=== PATIENT | male | born 1980 ===

== ENCOUNTER 2023-06-04 15:17 | Inpatient (IN) | payer OTHER ==
[~2023-06-04] VITALS: Ht 172.7 cm; Wt 91.2 kg
[2023-06-04] MEDS ORDERED: ZOLPIDEM 5 MG TABLET PO PRN (19:00)
[2023-06-04] MEDS ORDERED: IBUPROFEN 600 MG TABLET PO PRN (19:00)
[2023-06-04] MEDS ORDERED: ACETAMINOPHEN ES 500 MG TABLET PO PRN (19:00)
[2023-06-04] MEDS ORDERED: LORAZEPAM 1 MG TABLET PO PRN (19:00)
[2023-06-04] MEDS ORDERED: MAG HYDROX/AL HYDROX/SIMETH 30 ML LIQUID UDC PO PRN (19:00)
[2023-06-04] MEDS ORDERED: MAGNESIUM HYDROXIDE 30 ML LIQUID UDC PO PRN (19:00)
[2023-06-04 20:00] VITALS: BP 141/87; TEMP 98.3; O2SAT 99
[2023-06-04 21:00] VITALS: BP 135/71; TEMP 98.3; O2SAT 99
[2023-06-05] VITALS (7 sets, daily range): BP systolic 139–181; BP diastolic 73–100; TEMP 97.9–98.6; O2SAT 97–98
[2023-06-05] MEDS: OLANZAPINE 5 MG TABLET PO SCH (20:29)
[2023-06-06 09:01] VITALS: BP 115/72; TEMP 98.7; O2SAT 98
[2023-06-06 15:13] VITALS: BP 120/74; TEMP 98; O2SAT 98
[2023-06-06 16:56] VITALS: BP 141/91; TEMP 98; O2SAT 98
[2023-06-06 20:00] VITALS: BP 145/90; TEMP 98.2; O2SAT 98
[2023-06-06] MEDS: OLANZAPINE 5 MG TABLET PO SCH (20:02)
[2023-06-07 12:00] VITALS: BP 146/84; TEMP 97.8; O2SAT 100
[2023-06-07 20:00] VITALS: BP 145/86; TEMP 98.4; O2SAT 99
[2023-06-08 11:21] VITALS: BP 131/86; TEMP 98.6; O2SAT 99
[2023-06-08 20:39] VITALS: BP 143/97; TEMP 98.5; O2SAT 98
[2023-06-09 15:23] VITALS: BP 128/89; TEMP 97.9; O2SAT 96
[2023-06-09 21:33] VITALS: BP 136/70; TEMP 98.2; O2SAT 99
[2023-06-10 07:51] VITALS: BP 139/96; TEMP 97.9; O2SAT 98
[2023-06-10 21:50] VITALS: BP 147/92; TEMP 98.6
[2023-06-11 12:00] VITALS: BP 138/86; TEMP 98.1; O2SAT 98
[2023-06-11] MEDS ORDERED: ZOLPIDEM 5 MG TABLET PO PRN (15:00)
[2023-06-11] MEDS ORDERED: LORAZEPAM 1 MG TABLET PO PRN (15:00)
[2023-06-12 11:34] VITALS: BP 131/83; TEMP 98.7; O2SAT 98
[2023-06-12 22:11] VITALS: TEMP 98.2; O2SAT 100
[2023-06-12 22:12] VITALS: BP 148/97; TEMP 98.2; O2SAT 100
[2023-06-13 10:30] VITALS: BP 152/85; TEMP 98.4; O2SAT 97
[2023-06-13 11:08] VITALS: BP 152/85; TEMP 98.4; O2SAT 97
[2023-06-13 15:12] VITALS: BP 133/79; TEMP 97.6; O2SAT 97
[2023-06-14 11:33] VITALS: BP 131/87; TEMP 98.4; O2SAT 96
[2023-06-14 15:05] VITALS: BP 134/71; TEMP 98.2; O2SAT 95
[2023-06-14 20:00] VITALS: BP 133/80; TEMP 97.6; O2SAT 97
[2023-06-15 11:30] VITALS: BP 145/93; TEMP 99; O2SAT 97
[2023-06-15 20:26] VITALS: BP 136/89; TEMP 98.4; O2SAT 96
[2023-06-16 15:54] VITALS: BP 151/89; TEMP 98.6; O2SAT 97
[2023-06-16 16:47] VITALS: BP 103/51; TEMP 98.1; O2SAT 99
[2023-06-17 04:00] VITALS: BP 127/87; TEMP 98.5; O2SAT 97
[2023-06-17 11:03] VITALS: BP 121/83; TEMP 98.2; O2SAT 97
[2023-06-17 15:29] VITALS: BP 125/89; TEMP 98; O2SAT 97
[2023-06-18 04:00] VITALS: BP 122/82; TEMP 98.5; O2SAT 98
[2023-06-18] MEDS ORDERED: ZOLPIDEM 5 MG TABLET PO PRN (15:00)
[2023-06-18] MEDS ORDERED: LORAZEPAM 1 MG TABLET PO PRN (15:00)
[2023-06-18 16:30] VITALS: BP 127/89; TEMP 98.8; O2SAT 96
[2023-06-19 06:00] VITALS: BP 129/77; TEMP 98.4; O2SAT 97
[2023-06-19 12:00] VITALS: BP 124/85; TEMP 98.1; O2SAT 98
[2023-06-19 16:00] VITALS: BP 136/94; TEMP 98.7; O2SAT 97
[2023-06-19 20:00] VITALS: BP 144/78; TEMP 98; O2SAT 97
[2023-06-20 04:00] VITALS: BP 131/93; TEMP 98.1; O2SAT 97
[2023-06-20 11:43] VITALS: BP 125/75; TEMP 98.2; O2SAT 96
[2023-06-20 15:12] VITALS: BP 126/93; TEMP 97.8; O2SAT 97
[2023-06-21 11:48] VITALS: BP 146/94; TEMP 98.5; O2SAT 98
[2023-06-21 16:57] VITALS: BP 141/95; TEMP 98.6; O2SAT 99
[2023-06-21 20:00] VITALS: BP 134/79; TEMP 98.1; O2SAT 99
[2023-06-22 11:28] VITALS: BP 141/85; TEMP 98.2; O2SAT 96
[2023-06-22 16:11] VITALS: BP 142/93; TEMP 98.2; O2SAT 96
[2023-06-22 20:52] VITALS: BP 140/86; TEMP 98.1; O2SAT 94
[2023-06-23 11:30] VITALS: BP 126/76; TEMP 98.3; O2SAT 96
[2023-06-23 15:49] VITALS: BP 141/82; TEMP 98.2; O2SAT 97
[2023-06-23 20:00] VITALS: BP 151/97; TEMP 98.5; O2SAT 96
[2023-06-24 11:30] VITALS: BP 132/85; TEMP 97.7; O2SAT 98
[2023-06-24 15:50] VITALS: BP 132/96; TEMP 98.2; O2SAT 96
[2023-06-24 19:37] VITALS: BP 140/89; TEMP 98.5; O2SAT 98
[2023-06-25] MEDS ORDERED: LORAZEPAM 1 MG TABLET PO PRN (15:00)
[2023-06-25] MEDS ORDERED: ZOLPIDEM 5 MG TABLET PO PRN (15:00)
[2023-06-25 16:01] VITALS: BP 137/85; TEMP 98.3; O2SAT 99
[2023-06-25 20:00] VITALS: BP 141/89; TEMP 98.6; O2SAT 96
[2023-06-26 04:00] VITALS: BP 124/85; TEMP 97.8; O2SAT 97
[2023-06-26 16:00] VITALS: BP 132/83; TEMP 97.8; O2SAT 97
[2023-06-26 20:31] VITALS: BP 143/87; TEMP 98.2; O2SAT 95
[2023-06-27 04:47] VITALS: BP 126/83; TEMP 98.2; O2SAT 97
[2023-06-27 11:24] VITALS: BP 142/87; TEMP 97.9; O2SAT 98
[2023-06-27 21:20] VITALS: BP 138/83; TEMP 97.6; O2SAT 94
[2023-06-28 04:35] VITALS: BP 127/82; TEMP 97.6; O2SAT 97
[2023-06-28 15:59] VITALS: BP 142/96; TEMP 97.8; O2SAT 98
[2023-06-28 20:22] VITALS: BP 144/89; TEMP 97.7; O2SAT 98
[2023-06-29 08:09] VITALS: BP 132/78; TEMP 98; O2SAT 98
[2023-06-29 20:05] VITALS: BP 140/88; TEMP 98.5; O2SAT 95
[2023-06-30 04:47] VITALS: BP 114/82; TEMP 98.4; O2SAT 96
[2023-06-30 11:30] VITALS: BP 144/76; TEMP 98.2; O2SAT 96
[2023-06-30 20:32] VITALS: BP 135/91; TEMP 98.7; O2SAT 96
[2023-07-01 05:15] VITALS: BP 127/83; TEMP 98.2; O2SAT 96
[2023-07-01 11:03] VITALS: BP 146/80; TEMP 98.3; O2SAT 96
[2023-07-01 15:30] VITALS: BP 139/72; TEMP 98.5; O2SAT 97
[2023-07-01 20:49] VITALS: BP 145/92; TEMP 98.9; O2SAT 95
[2023-07-02 12:00] VITALS: BP 146/78; TEMP 98.2; O2SAT 98
[2023-07-02] MEDS ORDERED: LORAZEPAM 1 MG TABLET PO PRN (15:00)
[2023-07-02] MEDS ORDERED: ZOLPIDEM 5 MG TABLET PO PRN (15:00)
[2023-07-02 16:18] VITALS: BP 130/49; TEMP 98.2; O2SAT 97
[2023-07-02 22:41] VITALS: BP 138/66; TEMP 98.4; O2SAT 96
[2023-07-03 04:26] VITALS: BP 127/77; TEMP 98; O2SAT 98
[2023-07-03 08:06] VITALS: BP 145/91; TEMP 97.8; O2SAT 98
[2023-07-03 20:00] VITALS: BP 137/78; TEMP 98.5; O2SAT 97
[2023-07-04 07:36] VITALS: BP 135/86; TEMP 98; O2SAT 97
[2023-07-04 22:34] VITALS: BP 113/77; TEMP 98.6; O2SAT 96
[2023-07-05 04:44] VITALS: BP 124/91; TEMP 97.1; O2SAT 97
[2023-07-06 11:21] VITALS: BP 125/78; TEMP 98.9; O2SAT 98
[2023-07-06 19:46] VITALS: BP 149/82; TEMP 98.5; O2SAT 97
[2023-07-07 07:34] VITALS: BP 140/92; TEMP 98.6; O2SAT 97
[2023-07-07 22:16] VITALS: BP 131/81; TEMP 98.5; O2SAT 98
[2023-07-08 05:50] VITALS: BP 124/91; TEMP 98.1
[2023-07-08 07:45] VITALS: BP 138/93; TEMP 98.2; O2SAT 99
[2023-07-08 21:19] VITALS: BP 148/68; TEMP 98.8; O2SAT 94
[2023-07-09] MEDS ORDERED: LORAZEPAM 1 MG TABLET PO PRN (15:00)
[2023-07-09] MEDS ORDERED: ZOLPIDEM 5 MG TABLET PO PRN (15:00)
== END 2023-07-09 06:45 | disposition home or self-care (01) | DRG 951 ==
LOC: MEDSURG3 17:07
PROVIDERS: ADMIT Psychiatry & Neurology Psychiatry; ATTEND Psychiatry & Neurology Psychiatry
DX: Z00.6 Encounter for examination for normal comparison and control in clinical research program (principal); F20.9 Schizophrenia, unspecified; F17.210 Nicotine dependence, cigarettes, uncomplicated
CPT/HCPCS: A4663; G0378